=== PATIENT | female | born 1940 | race Caucasian/White ===

== ENCOUNTER 2023-03-19 06:15 | Day surgery (SDC) | payer OTHER, BC ==
[2023-03-15 11:33] VITALS: BMI 21.8
[~2023-03-19 06:15] MED LIST: ACETAMINOPHEN 1000 MG/100 ML BAG IVPB ONE; KETOROLAC TROMETHAMINE 30 MG/1 ML VIAL IVPUSH SCH; ONDANSETRON 4 MG/2 ML VIAL IVPUSH PRN
[2023-03-19] MEDS ORDERED: ceFAZolin SODIUM 1 GM VIAL ONE ×3 (07:03→08:15)
[2023-03-19] MEDS ORDERED: VANCOMYCIN 1,000 MG VIAL (RESTRICTED TO ID ONLY) ONE (07:03)
[2023-03-19] MEDS ORDERED: PROPOFOL 20 ML ONE ×2 (07:12→08:42)
[2023-03-19] MEDS ORDERED: MIDAZOLAM HCL 2 MG/2 ML SINGLE DOSE VIAL ONE (07:15)
[2023-03-19] MEDS ORDERED: BUPIVACAINE HCL/PF 0.5% (5 MG/ML) 30 ML VIAL IJ ONE (07:15)
[2023-03-19] MEDS ORDERED: ACETAMINOPHEN INJECTION 100 ML IVPB ONE (07:16)
[2023-03-19] MEDS ORDERED: BUPIVACAINE LIPOSOME/PF (EXPAREL) 266 MG/20 ML VIAL ONE (07:16)
[2023-03-19] MEDS ORDERED: TRANEXAMIC ACID 1000 MG/10 ML VIAL ONE (08:14)
[2023-03-19] MEDS ORDERED: LACTATED RINGERS SOLUTION 1,000 ML IV SCH (08:15)
[2023-03-19] MEDS ORDERED: KETOROLAC TROMETHAMINE 30 MG/1 ML VIAL ONE (08:18)
[2023-03-19] MEDS ORDERED: DEXAMETHASONE SOD PHOSPHATE 4 MG/1 ML VIAL ONE (08:18)
[2023-03-19] MEDS ORDERED: ONDANSETRON 4 MG/2 ML VIAL ONE (08:18)
[2023-03-19] MEDS ORDERED: VANCOMYCIN 1,000 MG VIAL (RESTRICTED TO ID ONLY) IVPB ONE (09:14)
[2023-03-19] MEDS: ACETAMINOPHEN 500 MG TABLET (FP) PO SCH ×2 (16:08→23:34)
[2023-03-19] MEDS: PANTOPRAZOLE 40 MG TABLET PO SCH (16:09)
[2023-03-19] MEDS: MULTIVITAMINS (DAILY MVI) TABLET (FP) PO SCH (16:09)
[2023-03-19] MEDS: SENNOSIDES/DOCUSATE COMBO (SENNA PLUS) TABLET (UD) PO SCH ×2 (16:09→21:43)
[2023-03-19] MEDS: HYDROCHLOROTHIAZIDE 12.5 MG CAPSULE (FP) PO SCH (16:09)
[2023-03-19] MEDS: CEFAZOLIN SODIUM 2 GM in DEXTROSE 5%-WATER 100 ML IVPB SCH ×2 (16:29→23:36)
[2023-03-19] MEDS: oxyCODONE HCL 5 MG TABLET PO PRN ×4 (16:55→23:35)
[2023-03-19] MEDS: oxyCODONE HCL 10 MG SUSTAINED ACTING TABLET PO SCH (21:44)
[2023-03-19] MEDS ORDERED: ATORVASTATIN CA 10 MG TABLET (FP) PO SCH (22:00)
[2023-03-19] MEDS ORDERED: LOSARTAN POTASSIUM 50 MG TABLET PO SCH (22:00)
[2023-03-20] MEDS: ONDANSETRON 4 MG/2 ML VIAL IVPUSH PRN ×2 (03:43→08:23)
[2023-03-20] MEDS: ACETAMINOPHEN 500 MG TABLET (FP) PO SCH (06:10)
[2023-03-20 06:15] VITALS: RESP 18
[2023-03-20] MEDS ORDERED: ASPIRIN 325 MG TABLET PO SCH (08:00)
[2023-03-20 08:20] LABS: HEMATOCRIT 36.3 % (32.4-45.2); HEMOGLOBIN 12.4 G/dL (10.7-15.3); MCH 31.2 pg (25.7-33.7); MCHC 34.1 g/dl (32.0-36.0); MEAN CELL VOLUME 91.4 fl (80-96); MEAN PLT VOLUME 10.3 fl (7.5-11.1); PLATELET COUNT 186.3 10^3/uL (134-434); RBC 3.97 10^6/uL (3.60-5.2); WHITE BLOOD COUNT 11.5 10^3/uL (4.0-10.8)
[2023-03-20] MEDS: oxyCODONE HCL 5 MG TABLET PO PRN (08:23)
[2023-03-20] MEDS: PANTOPRAZOLE 40 MG TABLET PO SCH (09:05)
[2023-03-20] MEDS: HYDROCHLOROTHIAZIDE 12.5 MG CAPSULE (FP) PO SCH (09:05)
[2023-03-20] MEDS: SENNOSIDES/DOCUSATE COMBO (SENNA PLUS) TABLET (UD) PO SCH (09:05)
[2023-03-20] MEDS: MULTIVITAMINS (DAILY MVI) TABLET (FP) PO SCH (09:05)
[2023-03-20 09:58] VITALS: BP 109/50; PULSE 68; TEMP 98.4
[2023-03-20] MEDS: oxyCODONE HCL 10 MG SUSTAINED ACTING TABLET PO SCH (11:52)
== END 2023-03-20 12:08 | disposition home health service (06) ==
LOC: FASU 06:15 → FM/S 10:48 → FASU 03-20 12:08
PROVIDERS: ATTEND Orthopaedic Surgery
PROC: 0SRD0JA Replacement of Left Knee Joint with Synthetic Substitute, Uncemented, Open Approach (ICD-10-PCS; principal; 2023-03-19 08:26)
DX: M17.12 Unilateral primary osteoarthritis, left knee (principal)
CPT/HCPCS: 20985; 27447; C1776; S2900; 36415; 73560-TC-LT-FY; 85027; 94760; 97010-GP; 97116-GP; 97162-GP; C1713